=== PATIENT | female | born 1945 | race Caucasian/White ===

== ENCOUNTER 2017-01-04 08:33 | Inpatient (IN) ==
[2017-01-04] MEDS ORDERED: SODIUM CHLORIDE 0.9% 500 ML IV STA (09:04)
--- NOTE | 2017-01-04 09:07 | EKG Report ---
Stationary ECG Study [facility] ER Test Date: 01/04/2017 8:53:47 AM Pat Name: MERLENE WOOD Department: Room: 225 Gender: F Cobbler Mckay: Axel Sim : 1945 Requested by: Cristofer Shepard Order Number: [id number] Reading MD: RADHA JUAN Intervals [place] Rate: 53 P: 80 AR: 143 QRS: 16 QRSD: 84 T: 67 QT: 420 QTc: 404 Interpretive Statements SINUS BRADYCARDIA Electronically Signed On 01-06-17 16:32:02 CDT by RADHA JUAN [email or web address]
[2017-01-04 09:28] LABS: Basophils % 0.5 % (0.0-0.8); Eosinophils % 0.3 % (0.00-10.9); Hemoglobin 13.9 GM/DL (12.0-16.0); Immature Granulocytes % 0.3 %; Immature Granulocytes Absolute 0.02 #; Lymphocytes # 1.6 10*3/uL (1.4-4.0); Lymphocytes % 20.9 % (21.3-54.2); Mean Corpuscular HGB Conc 33.1 GM/DL (32-36); Mean Corpuscular Hemoglobin 31 PG (27-34); Mean Corpuscular Volume 92.9 FL (87-102); Mean Platelet Volume 8.7 FL (9.6-12.0); Monocytes # 0.6 10*3/uL (0.11-0.8); Neutrophils # 5.4 10*3/uL (1.4-7.4); Platelet Count 272 T/CUMM (130-400); Red Blood Count 4.52 MC/CUMM (3.8-5.5); Red Cell Distribution Width 13.4 % (9.3-17.3); White Blood Count 7.8 T/CUMM (4-12)
--- NOTE | 2017-01-04 09:40 | XRay Report ---
XR chest 1V portable Indication: Syncope. Palpitations. Chest one view: Comparison 10/12/2016. Heart remains normal in size with continued thoracic aortic tortuosity. No new infiltrates are shown. Pleural spaces are clear. Impression: No acute cardiopulmonary disease. PROCEDURE INTERPRETED AT [facility] DEPARTMENT OF RADIOLOGY Final Report Signed by: Josafat Camarillo M.D.
[2017-01-04 09:42] LABS: Barbiturates Screen,Urine Negative (Negative); Benzodiazepines Screen,Urine Positive (Negative); Cannabinoid Screen,Urine Negative (Negative); Opiate Screen,Urine Negative (Negative); Phencyclidine Screen,Urine Negative (Negative)
[2017-01-04 09:59] LABS: Alanine Aminotransferase 21 U/L (13-56); Albumin 3.7 G/DL (3.4-5.0); Alkaline Phosphatase 73 U/L (45-117); Aspartate Amino Transferase 16 U/L (0-37); Blood Urea Nitrogen 11 MG/DL (7-18); Calcium 8.6 MG/DL (8.5-10.1); Glucose 103 MG/DL (74-106); Osmolality,Calculated 286.7 MOS/KG (273-304); Potassium 3.9 MMOL/L (3.5-5.1); Sodium 145 MMOL/L (136-145); Total Protein 6.3 G/DL (6.4-8.3); Troponin I Only < 0.015 NG/ML (0.00-0.045)
--- NOTE | 2017-01-04 10:38 | CT Report ---
CT head/brain wo con Indication: 71-year-old female, headaches and confusion. CT BRAIN WITHOUT CONTRAST DLP: 982 mGy*cm. One or more of the following dose reduction techniques was used: Automated exposure control, adjustment of the mA and/or kV according the patient size, or use of iterative reconstruction techniques. Comparison: 03/25/2011. Date of admission: 01/04/2017. Technique: Axial noncontrast CT images of the brain were obtained. Findings: No acute hemorrhage, mass or mass effect. Generalized atrophy with prominent CSF space overlying both convexities, stable. Old lacunar infarct right internal capsule, stable. Cortical johnson-white junction is maintained. No acute ischemic changes identified. No bone lesions. Sinuses are clear. Impression: No acute intracranial pathology. Generalized atrophy. Old lacunar infarct right basal ganglia. PROCEDURE INTERPRETED AT [facility] DEPARTMENT OF RADIOLOGY Final Report Signed by: Josafat Camarillo M.D.
--- NOTE | 2017-01-04 11:00 | Emergency Department Note ---
Marciano Funes Brooke, am scribing for, and in the presence of, Cristofer Shepard Jr., MD 09:07. Devyn Funes Marvin Jr., MD, personally performed the services described in this documentation, ascribed by Jenni Tariq in my presence, and it is both accurate and complete 918 . Arrival - Arrival Chief Complaint: Syncope Stated Complaint: passed out twice this morning and loosing weight ED Nursing Triage Note: Pt c/o Syncope x 2 this am with chest heaviness, CASTANEDA, weakness, and nervous feeling. Pt also reports weight loss from 146 to 111 lbs over the last 2 months. Mode of Arrival: Wheelchair Limitations: No Limitations Source: Patient, RN Notes Reviewed Time Seen by Provider: 01/04/17 08:58 - History of Present Illness HPI Narrative: Patient is a 71 year old female who presents to the ED following two syncopal episodes that happened this morning. She was standing on carpet when she fell into the floor. She denies any injury due to the falls. She says she had just got out of the bathtub and that she did feel dizzy before both syncopal episodes. She also complains of having "heart palpitations, headache and diarrhea but denies any fever, chills, nausea, or vomiting. She says her heart beat is "irregular" and "sometimes skips a beat." She says the diarrhea is chronic and has been going on for about a year. After eating, she says she "has to find a bathroom within 15-30 minutes." Patient says over the past two months she has lost a significant amount of weight. She says she did weight 146 pounds but was 111 pounds during triage today. She says she is still eating and drinking without any problems. Patient's Primary Care Provider is Dr. Sanchez and that he is aware of the problems she is having. She states that Dr. Sanchez told her to come to the ED today. Patient is a smoker. She has PMHx of HTN, diabetes, insomnia, and depression. Allergies/Adverse Reactions: Allergies Allergy/AdvReac Type Severity Reaction Status Date / Time No Known Allergies Allergy Unverified 10/12/16 08:52 Home Medications: Home Medications Medication Instructions Recorded Confirmed Type HydrOXYzine PAMOATE CAP [Vistaril 25 mg PO QID PRN #30 capsule 10/12/16 Rx Cap] ALPRAZolam [Alprazolam] 0.5 mg PO Q6H PRN 01/04/17 01/04/17 History Sertraline [Zoloft] 50 mg PO BEDTIME 01/04/17 01/04/17 History Review of System - Review of System 12 point system: reviewed and no additional remarkable complaints except as stated - Review of System Constitutional: Absent: chills, fever Respiratory: Absent: respiratory distress Cardiovascular: Present: palpitations ("skipping beats" and "irregular"), syncope (x2) Gastrointestinal: Present: diarrhea (chronic for past year). Absent: nausea, vomiting Skin: Absent: rash Neurological: Present: headache, other (dizziness prior to the syncopal episodes ) Medical,Surgical,& Family Hx - Medical History Cardio: History of: Hypertension Psychological: History of: Depression Endocrine: History of: Diabetes Mellitus (NIDDM) - Surgical History Abdominal Surgeries: Surgical HX of: Cholecystectomy Reproductive Surgeries: Surgical HX of;: Hysterectomy, Tubal Ligation - Social History Smoking Status: Current every day smoker Exam Physical Examination: General: Well-developed well-nourished, no apparent distress. Slightly anxious Head: Normocephalic, atraumatic. Eyes: PERRLA, EOMI. Nose: No obvious acute deformities or discharge. Mouth: No obvious acute injury. Neck: Full range of motion without obvious pain. No midline tender to palpation. Lymphatic: no significant lymphadenopathy noted. Lungs: Clear to auscultation bilaterally, normal and equal air movement bilaterally, no obvious rales or wheezing. Heart: regular rate and rhythm, no obvious mummers. Patient says she has felt like her heart was racing and irregular but not now. Abdomen: Soft nontender, nondistended, normal active bowel sounds. Skin: No obivous acute lesions noted Musculoskeletal: No gross deformities. Neurological: No focal findings, cranial nerves II through XII grossly normal. Moves all her limbs, strength good, Psychiatric: Slightly anxious : Deferred Vital Signs: Vital Signs Temperature 97.4 F L 01/04/17 09:00 Pulse Rate 60 01/04/17 09:00 Respiratory Rate 18 01/04/17 09:35 Blood Pressure 125/79 01/04/17 09:00 O2 Sat by Pulse Oximetry 100 01/04/17 08:50 Course Course Narrative: Differential diagnosis, cardiac arrhythmias, syncope, hypoglycemia, vasovagal, intracranial bleeds or swelling is very low probability due to the intermittent nature of this condition. - Reevaluation(s) Reevaluation #1: She tells the nurse that she has been very confused lately so we will broaden our diagnostic parameters to include a head CT. Time: 09:26 Reevaluation #2: Patient feeling fine. I also reviewed past medical records and see nothing in the computer database relevant to today's visit. Time: 10:59 Results - Labs CBC & BMP: 01/04/17 09:16 01/04/17 09:16 Lab Results: I have reviewed the patients labs Labs: Laboratory Tests 01/04/17 09:16 WBC 7.8 RBC 4.52 Hgb 13.9 Hct 42.0 MCV 92.9 MCH 31 MCHC 33.1 RDW 13.4 Plt Count 272 MPV 8.7 L Neut % (Auto) 70.0 Lymph % (Auto) 20.9 L [place] % (Auto) 8.0 Eos % (Auto) 0.3 Baso % (Auto) 0.5 Neut # (Auto) 5.4 Lymph # (Auto) 1.6 [place] # (Auto) 0.6 Eos # (Auto) 0.0 Baso # (Auto) 0.0 Immature Gran % 0.3 Nucleated RBC % 0.0 Immature Gran # 0.02 Nucleated RBCs # 0.00 Laboratory Tests 01/04/17 09:16 Urine Opiates Screen Negative Ur Barbiturates Screen Negative Ur Phencyclidine Scrn Negative U Amphetamine/Methamph Negative U Benzodiazepines Scrn Positive H U Cocaine Metab Screen Negative U Cannabinoids Screen Negative Laboratory Tests 01/04/17 09:16 Sodium 145 Potassium 3.9 Chloride 111 H Carbon Dioxide 28 Anion Gap 9.9 BUN 11 Creatinine 0.80 GFR Calculation 64 BUN/Creatinine Ratio 13.00 Glucose 103 Calculated Osmolality 286.7 Calcium 8.6 Total Bilirubin 0.60 AST 16 ALT 21 Alkaline Phosphatase 73 Troponin I < 0.015 Total Protein 6.3 L Albumin 3.7 Globulin 2.6 Albumin/Globulin Ratio 1.4 - EKG EKG results: interpreted by ERMD (Heart rate 53, normal sinus rhythm, regular, narrow complex QRS complexes without obvious acute changes. Interpretation is mild sinus bradycardia) - Diagnostic Findings Procedure: Chest x-ray: image reviewed by me, report reviewed by me (No obvious acute changes. Impression: No acute cardiopulmonary disease.), CT: report reviewed by me (CT head/brain wo con: No acute intracranial pathology. Generalized atrophy. Old lacunar infarct right basal ganglia.) Disposition Clinical Impression: Acute syncopal episodes, History of depression, Palpitations Case discussed with: patient Disposition: Still a Patient Condition: Stable Time of Disposition: 11:00
[2017-01-04] MEDS ORDERED: NICOTINE 21 MG/24 HR PATCH TRANSDERM PRN (11:49)
[2017-01-04] MEDS ORDERED: ONDANSETRON 4 MG/2 ML VIAL IV PRN (11:49)
[2017-01-04] MEDS ORDERED: diphenhydrAMINE CAP 25 MG CAPSULE PO PRN (11:49)
[2017-01-04] MEDS ORDERED: MORPHINE 2 MG/1 ML SYRINGE IV PRN (11:49)
[2017-01-04] MEDS ORDERED: DOCUSATE SODIUM 100 MG CAPSULE PO PRN (11:49)
[2017-01-04] MEDS ORDERED: ZALEPLON 5 MG CAPSULE PO PRN (11:49)
[2017-01-04] MEDS ORDERED: ALPRAZolam 0.5 MG TABLET PO PRN (11:52)
--- NOTE | 2017-01-04 12:11 | Hospitalist History & Physical ---
Assessment and Plan - Time spent with patient Time spent with patient: Greater than 30 minutes (1) History of anxiety Status: Acute Assessment and plan: Patient has a history of anxiety and depression. Will restart her medicines while she is here in the hospital. She is asymptomatic. Current Visit: Yes (2) Bradycardia Status: Acute Assessment and plan: Patient is bradycardic on EKG and on exam. Her troponins are negative. This could be the reason for her syncopal episodes this morning. Will consult cardiology for evaluation. Current Visit: Yes (3) Syncope Status: Acute Assessment and plan: Patient had syncopal episode 2 this morning. Will check thyroid studies, serial troponins and EKG in the morning. We will also get cardiology to evaluate since patient is also having bradycardia. Current Visit: Yes (4) History of depression Status: Acute Assessment and plan: Patient seems to be stable on her home medicines. We will restart these for her hospital stay. Current Visit: Yes (5) Palpitations Status: Acute Assessment and plan: Patient is having symptomatic palpitations especially at night. Patient feels like her heart is beating irregularly and out of her chest. She is bradycardic at this time and with her syncopal episode we will go ahead and consult cardiology for further evaluation. All of this is been discussed with Dr. Sawyer the admitting hospitalist. Further recommendations to follow. Current Visit: Yes History of Present Illness Chief complaint: Fainting 2 History of present illness: Ms. Agustin is a 71 year old female with history of anxiety and depression presenting to the ED with syncopal episode 2 this morning. Patient states she had just gotten out of the bathtub and was drying off when she blacked out. She fell on the carpet and did not get hurt. She states about 10 or 15 minutes later the same thing happened in the living room. Patient has been feeling weak for the last month, complaining of headaches at the base of her skull associated with blurred vision and diarrhea intermittently right after she eats. Patient states she has had loss of appetite but she is forcing herself to eat. And she has had a weight loss of approximately 30-35 pounds in the last 2 months. She also complains of palpitations and heart beating out of her chest and irregularly especially at night. This is been going on for about a month. Patient denies dizziness, dysphasia, chest pain, shortness of breath, abdominal pain, constipation, and lower extremity edema. She states this same thing happened to her minus the syncopal episodes about 4 or 5 years ago. She was evaluated by her family doctor at that time which was Dr. Hyde, and he did not find anything wrong with her. She states it just cleared up on her own after several months. Her workup in the ED show normal labs and normal vital signs. Her head CT shows an old basal ganglia infarct and no acute process identified. Her EKG is showing sinus bradycardia with a conduction delay. Her family doctor is Dr. Sanchez and she is never seen a sock drier or ladle patcher. After discussion with the ED physician Dr. Shepard and Dr. Sawyer the admitting hospitalist, it was decided patient would be admitted for syncopal workup. Home Medications Medication Instructions Recorded Confirmed Type HydrOXYzine PAMOATE CAP [Vistaril 25 mg PO QID PRN #30 capsule 10/12/16 Rx Cap] ALPRAZolam [Alprazolam] 0.5 mg PO Q6H PRN 01/04/17 01/04/17 History Sertraline [Zoloft] 50 mg PO BEDTIME 01/04/17 01/04/17 History Allergies Allergy/AdvReac Type Severity Reaction Status Date / Time No Known Allergies Allergy Unverified 10/12/16 08:52 Medical,Surgical,& Family Hx - Medical History Cardio: No history of: Hypertension Psychological: History of: Depression Endocrine: No history of: Diabetes Mellitus (NIDDM) - Surgical History Abdominal Surgeries: Surgical HX of: Cholecystectomy Reproductive Surgeries: Surgical HX of;: Hysterectomy, Tubal Ligation - Family History Family History: Reports;: Family Diabetes - Social History Smoking Status: Current every day smoker Marital Status: Functional capacity: independent ambulation Review of systems: A complete 10 system review of systems was obtained and pertinent negatives and positives are in HPI. Exam - Constitutional Exam: Constitutional System: No distress. No tremulousness. Head: Normocephalic, atraumatic. Ears, Nose and Throat System: No evidence of Otitis or Mastoiditis. No epistaxis or discharge Eyes System: Pupils equal, round, and reactive. Extraocular muscles intact. Neck: Supple, without adenopathy, No jugular venous distention. No thyromegaly, neck mass, or prior surgery apparent. Respiratory System: Chest clear to auscultation. Cardiovascular System: Heart with bradycardic rate and rhythm. No murmur. GI System: Abdomen soft, nontender. Normo active bowel sounds present. Musculoskeletal System: limbs with no pedal edema. Full distal pulses. Neurological System: No discernable sensory deficit. No aphasia Psychiatric System: Conversation is rational Results - Labs CBC & BMP: 01/04/17 09:16 01/04/17 09:16 Lab Results: I have reviewed the past 24 hour labs - EKG EKG shows: bradycardia - Diagnostic Findings Procedure: Chest x-ray: report reviewed by me (No acute process), CT: report reviewed by me (Head shows old basal ganglier infarct, no acute process)
[2017-01-04 12:18] LABS: Free T4 (Free Thyroxine) 1.1 NG/DL (0.76-1.46); Thyroid Stimulating Hormone 1.71 uIU/ml (0.358-3.74)
[2017-01-04] MEDS: ENOXAPARIN 40 MG/0.4 ML SYRINGE SUBCUT SCH (12:58)
[2017-01-04] MEDS: PANTOPRAZOLE 40 MG TABLET PO SCH (12:59)
[2017-01-04] MEDS: SODIUM CHLORIDE 0.9% 1,000 ML IV SCH ×2 (13:07→21:23)
[2017-01-04 14:16] LABS: Folate 21.8 NG/ML (5.4-24.0)
[2017-01-04] MEDS: ACETAMINOPHEN 325 MG TABLET PO PRN ×2 (15:17→21:26)
--- NOTE | 2017-01-04 18:22 | Ultrasound Report ---
US carotid duplex BI Indication: Syncope. CAROTID ULTRASOUND Comparison: 08/21/2011. Findings: Grayscale, color Doppler and pulsed Doppler interrogation of the carotid and vertebral arteries performed. Severity of stenosis based on flow velocity measurements using NASCET criteria. Distal right ICA diameter: 3.9 mm mm Distal left ICA diameter: 4.7 mm Peak systolic flow velocities in centimeters per second are as follows: Right: CCA: 69 cm/s Proximal ICA: 55 Distal ICA: 77 ICA/CCA ratio: 1.1 Left: CCA: 74 cm/s Proximal ICA: 72 Distal ICA: 112 ICA/CCA ratio: 1.5 External carotid arteries: Both are patent with antegrade flow. Vertebral arteries: Both are patent with antegrade flow. Grayscale and color Doppler images: There are couple areas of calcified focal plaque deposition identified, with normal color Doppler flow present. Pulse Doppler waveform interrogation: No significant spectral broadening. Impression: No hemodynamically significant stenosis of either ICA origin. PROCEDURE INTERPRETED AT [facility] DEPARTMENT OF RADIOLOGY Final Report Signed by: Josafat Camarillo M.D.
[2017-01-04] MEDS ORDERED: SERTRALINE 50 MG TABLET PO SCH (21:00)
[2017-01-04 22:48] LABS: Apearance,Urine Slightly Hazy (Clear); Bilirubin,Urine Negative (Negative); Blood, Urine Moderate mg/dL (Negative); Glucose,Urine (UA) Negative (Negative); Hyaline Casts,Urine 1 /LPF (0-3); Ketones,Urine Negative (Negative); Mucus,Urine Occasional /LPF (Occasional); Nitrite,Urine Negative (Negative); Protein,Urine Negative; RBC,Urine 1 /HPF (0-4); Squamous Epithelial Cell,Urine Occasional /HPF (0-10); Urine Color Yellow (Yellow); Urine Specific Gravity 1.023 (1.001-1.035); Urine Urobilinogen < 2.0 EU/DL (0.2-1.0); WBC,Urine 3 /HPF (0-6)
[2017-01-05 05:07] LABS: Basophils # 0.1 10*3/uL (0.0-0.2); Basophils % 0.8 % (0.0-0.8); Eosinophils # 0.1 10*3/uL (0.0-0.87); Eosinophils % 1.8 % (0.00-10.9); Hematocrit 36.8 VOL% (35.7-47.0); Hemoglobin 12.2 GM/DL (12.0-16.0); Immature Granulocytes % 0.5 %; Immature Granulocytes Absolute 0.03 #; Lymphocytes # 2.4 10*3/uL (1.4-4.0); Mean Corpuscular HGB Conc 33.2 GM/DL (32-36); Mean Corpuscular Hemoglobin 31 PG (27-34); Mean Corpuscular Volume 92.5 FL (87-102); Mean Platelet Volume 9.5 FL (9.6-12.0); Monocytes # 0.6 10*3/uL (0.11-0.8); Monocytes % 9.7 % (1.7-12.7); NRBC # 0.02 10*3/uL; Neutrophils # 3.3 10*3/uL (1.4-7.4); Neutrophils % 50.2 % (38.7-73.9); Platelet Count 241 T/CUMM (130-400); Red Blood Count 3.98 MC/CUMM (3.8-5.5); Red Cell Distribution Width 13.4 % (9.3-17.3); White Blood Count 6.5 T/CUMM (4-12)
[2017-01-05 05:37] LABS: Calcium 8.3 MG/DL (8.5-10.1); Magnesium 2.2 MG/DL (1.8-2.4); Osmolality,Calculated 292.3 MOS/KG (273-304); Potassium 4.5 MMOL/L (3.5-5.1)
[2017-01-05] MEDS: SODIUM CHLORIDE 0.9% 1,000 ML IV SCH (05:57)
--- NOTE | 2017-01-05 08:38 | EKG Report ---
Stationary ECG Study 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
[2017-01-05] MEDS: PANTOPRAZOLE 40 MG TABLET PO SCH (09:06)
--- NOTE | 2017-01-05 09:44 | Hospitalist Progress Note ---
Assessment and Plan (1) Syncope Status: Acute Assessment and plan: No further episodes of syncope. Carotid dopplers on yesterday (-); CT of brain ( -). The cause of syncope may be of a cardiac origin; Cardiology consult requested. Will obtain echo today. Current Visit: Yes (2) Bradycardia Status: Acute Assessment and plan: Thyroid panels were negative; the origin of the bradycardia may truly be from a cardiac origin. May be a side effect of the use of Zoloft and Xanax together. Will obtain cardiology consult today Current Visit: Yes Hospitalist: Subjective Interval history: Patient seen and examined. No significant overnight issues. Awaiting cardiology consult. Exam - Constitutional Vitals: Period Temp Pulse Resp BP Sys/Hernandez Pulse Ox Last 24 Hr 97.1 F-99.1 F 49-68 14-20 97-126/53-79 98-100 General appearance: normal weight, no acute distress - Head Head exam: Present: normal inspection, normocephalic, atraumatic - Eye Eye exam: Present: EOMI. Absent: conjunctival injection, nystagmus, periorbital swelling, scleral icterus Pupils: Present: VITA, normal accommodation - ENT ENT exam: Present: normal exam - Neck Neck exam: Present: normal inspection. Absent: lymphadenopathy, meningismus, tenderness, thyromegaly - Respiratory Respiratory exam: Present: clear to auscultation bilaterally. Absent: rales, rhonchi, stridor, wheezes - Cardiovascular Cardiovascular exam: Present: regular rate and rhythm. Absent: carotid bruit, diastolic murmur, gallop, JVD, rubs, systolic murmur - GI/Abdominal GI/Abdominal exam: Present: normal bowel sounds, soft. Absent: tenderness - Extremities Exam Extremities exam: Present: normal inspection, full ROM. Absent: edema - Back Exam Back exam: Present: normal inspection - Neurological Exam Neurological exam: Present: alert, oriented X3, CN II-XII intact - Psychiatric Psychiatric exam: Present: normal affect, normal mood - Skin Skin exam: Present: normal color, warm, dry Results - Labs CBC & BMP: 01/05/17 04:26 01/05/17 04:26 Lab Results: I have reviewed the past 24 hour labs
--- NOTE | 2017-01-05 10:05 | ECHO Report ---
Ginger Agustin Exam Date: 01/05/2017 08:53 Referring Physician: Technologist: Ana Luisa Todd RDCS Age: 71 Ht (in): 62 Wt (lb): 120 Gender: F Exam Location: [facility] Echo Indications: Syncope and collapse, Weakness, Palpitations, Bradycardia, unspecified, Blurred vision, Headaches, Nicotine dependence, cigarettes, uncomplicated BP: 109 / 55 HR: 60 Rhythm: Sinus Technical Quality: IMPRESSIONS Normal left ventricular cavity size. Normal left ventricular wall thickness. Left ventricular ejection fraction is estimated at 60%. Normal systolic function. Grade 2 diastolic dysfunction. The right ventricle is mildly dilated, with normal systolic function. Moderate pulmonary hypertension. Mild biatrial enlargement. Mild mitral regurgitation. Mild aortic valve sclerosis, without stenosis or insufficiency. MEASUREMENTS (Male / Female) Normal Values 2D ECHO LV Diastolic Diameter PLAX 4.2 cm 4.2 - 5.9 / 3.9 - 5.3 cm LV Systolic Diameter PLAX 2.1 cm LV Fractional Shortening PLAX 49.4 % IVS Diastolic Thickness 0.8 cm 0.6 - 1.0 / 0.6 - 0.9 cm LVPW Diastolic Thickness 0.9 cm 0.6 - 1.0 / 0.6 - 0.9 cm RV Internal Dim ED PLAX 2.7 cm Aortic Root Diameter 2.9 cm LA Systolic Diameter LX 3.5 cm 3.0 - 4.0 / 2.7 - 3.8 cm DOPPLER TR Peak Velocity 335.0 cm/s TR Peak Gradient 44.9 mmHg FINDINGS Left Ventricle Normal left ventricular cavity size. Normal left ventricular wall thickness. Left ventricular ejection fraction is estimated at 60%. Normal systolic function. Grade 2 diastolic dysfunction. Right Ventricle The right ventricle is mildly dilated, with normal systolic function. Right Atrium The right atrium is mildly dilated. Left Atrium The left atrium is mildly dilated. Mitral Valve Structurally normal mitral valve, with mild regurgitation. Aortic Valve Mild aortic valve sclerosis, without stenosis or insufficiency. Tricuspid Valve Morphologically normal tricuspid valve. Moderate tricuspid valve regurgitation. Tricuspid regurgitation velocities suggest a PAP of 55 mmHg. Pulmonic Valve Morphologically normal pulmonic valve without significant stenosis. There is no pulmonic regurgitation. Pericardium Normal pericardium without effusion. Aorta Normal ascending aorta dimension. Dudley Yang (Electronically Signed) Final Date: 05 January 2017 10:04
--- NOTE | 2017-01-05 10:37 | Cardiology Consult Note ---
Assessment and Plan (1) Syncope Status: Acute Assessment and plan: 71-year-old female, with an episode of syncope, suggestive of orthostatic origin. Episodes of anxiety, intermittent chest discomfort, shortness of breath. No sustained palpitations. Mild sinus bradycardia, occasional atrial ectopy, no high-risk findings on telemetry. Significant weight loss, diarrhea over last months. Moderate pulmonary hypertension, with diastolic dysfunction. -Check d-dimer. If elevated, will need to rule out PE. Clinically this is low probability. -Recent significant weight loss concerning for malignancy. Although she had prior similar episode, she does not recall a recent workup. -She has diastolic dysfunction. Feeling better. Discontinue IV fluids, check orthostatic vitals. If she is not orthostatic, I would hold further IV fluids and just continue with p.o. hydration. -Keep on telemetry. If no etiology established, she will need an event recorder. Intermittent anxiety, chest discomfort, shortness of breath. This could be panic attacks, but will need to rule out intermittent symptomatic arrhythmia. Current Visit: Yes (2) Bradycardia Status: Acute Current Visit: Yes (3) History of anxiety Status: Acute Current Visit: Yes (4) History of depression Status: Acute Current Visit: Yes (5) Palpitations Status: Acute Current Visit: Yes History of Present Illness - Data of Consult Patient: new to practice Consult date: 01/05/17 - Consult Narrative Reason for consult: syncope History of present illness: Ms. Agustni is a 71 year old female, followed by Dr. Sanchez. She was admitted after an episode of syncope. She was taking a shower, when was trying to dry herself off, she felt they were going dark and she blacked out. No injuries. She lost approximately 30 pounds in the past months, gets significant diarrhea several minutes after she eats. She had similar episode several years ago, she remembers workup was unremarkable at that time and she does not remember a specific diagnosis. She denies any leg swelling. Occasionally, she is has episodes which she describes panic attacks, becomes very anxious and developed some chest discomfort, and shortness of breath, lasting for several minutes. She has depression and occasional migraine headaches. These are stable at this time. There is no history of angina, exertional dyspnea, palpitations. X-ray, carotid ultrasound was unremarkable. Labs do not suggest severe dehydration. Thyroid functions normal. Cardiac biomarkers negative. EKG sinus rhythm, with occasional atrial ectopy, no critical bradycardia or significant pauses so far. Echo showed normal systolic function, moderate pulmonary hypertension. Grade [address] showed some old lacunar lesions. No acute lesions. She was started on IV fluids yesterday. Currently, she is feeling fine. CC: Barrera Sawyer Jr., MD - Home Medications and Allergies Home Medications: Home Medications Medication Instructions Recorded Confirmed Type HydrOXYzine PAMOATE CAP [Vistaril 25 mg PO QID PRN #30 capsule 10/12/16 Rx Cap] ALPRAZolam [Alprazolam] 0.5 mg PO Q6H PRN 01/04/17 01/04/17 History Sertraline [Zoloft] 50 mg PO BEDTIME 01/04/17 01/04/17 History Allergies/Adverse Reactions: Allergies Allergy/AdvReac Type Severity Reaction Status Date / Time No Known Allergies Allergy Unverified 10/12/16 08:52 12 point system: reviewed and no additional remarkable complaints except as stated Medical,Surgical,& Family Hx - Medical History Cardio: No history of: Hypertension Psychological: History of: Depression Neurology: History of: Migraine No history of: Brain Aneurysm, Seizures Endocrine: No history of: Diabetes Mellitus (NIDDM) - Surgical History Neurologic Surgeries: Patient denies: Brain Aneurysm, Neurologic Surgery Abdominal Surgeries: Surgical HX of: Cholecystectomy Reproductive Surgeries: Surgical HX of;: Hysterectomy, Tubal Ligation - Family History Family History: Reports;: Family Diabetes - Social History Smoking Status: Current every day smoker Frequency of Alcohol Use: None Type of Drug Use: None Physical Examination Vital Signs Temp Pulse Resp BP Pulse Ox 97.4 F L 60 18 125/79 100 01/04/17 08:50 01/04/17 08:50 01/04/17 08:50 01/04/17 08:50 01/04/17 08:50 General: Present: Appears Well, No Apparent Distress HEENT: Present: Normocephaly, Mucus Membranes Moist Neck: Present: Supple Neck, Midline Trachea, No JVD/HJR Cardiac: Present: Regular Rate, Regular Rhythm. Absent: Gallop Lungs: Present: Normal Exam, No Wheeze, Rales, Rhonchi Neuro: Present: Grossly Intact Abdomen: Present: Soft, Active Bowel Sounds Skin: Present: Clear. Absent: Rash Extremities: Present: No Clubbing, No Cyanosis, No Edema Result/EKG - Labs CBC & BMP: 01/05/17 04:26 01/05/17 04:26 Lab Results: I have reviewed the past 24 hour labs Labs: Laboratory Results - last 24 hr 01/04/17 01/05/17 01/05/17 22:00 04:26 04:26 WBC 6.5 RBC 3.98 Hgb 12.2 Hct 36.8 MCV 92.5 MCH 31 MCHC 33.2 RDW 13.4 Plt Count 241 MPV 9.5 L Neut % (Auto) 50.2 Lymph % (Auto) 37.0 [place] % (Auto) 9.7 Eos % (Auto) 1.8 Baso % (Auto) 0.8 Neut # (Auto) 3.3 Lymph # (Auto) 2.4 [place] # (Auto) 0.6 Eos # (Auto) 0.1 Baso # (Auto) 0.1 Immature Gran % 0.5 Nucleated RBC % 0.3 Immature Gran # 0.03 Nucleated RBCs # 0.02 Sodium 148 H Potassium 4.5 Chloride 117 H Carbon Dioxide 25 Anion Gap 10.5 BUN 11 Creatinine 0.80 GFR Calculation 64 BUN/Creatinine Ratio 13.00 Glucose 94 Calculated Osmolality 292.3 Calcium 8.3 L Magnesium 2.2 Urine Color Yellow Urine Appearance Slightly hazy Urine pH 5.0 Ur Specific [place] 1.023 Urine Protein Negative Urine Glucose (UA) Negative Urine Ketones Negative Urine Blood Moderate Urine Nitrate Negative Urine Bilirubin Negative Urine Urobilinogen < 2.0 H Urine Leukocytes Small H Urine RBC 1 Urine WBC 3 Ur Squamous Epith Cells Occasional Hyaline Casts 1 Urine Mucus Occasional Ur Culture Indicated? Results to follow - EKG EKG results: interpreted by me
[2017-01-05] MEDS: buPROPion 75 MG TABLET PO SCH ×2 (11:47→20:36)
[2017-01-05] MEDS: ENOXAPARIN 40 MG/0.4 ML SYRINGE SUBCUT SCH (11:47)
[2017-01-05] MEDS: ACETAMINOPHEN 325 MG TABLET PO PRN (20:36)
[2017-01-06] MEDS: ACETAMINOPHEN 325 MG TABLET PO PRN ×2 (05:53→20:42)
[2017-01-06 06:00] LABS: Basophils # 0.1 10*3/uL (0.0-0.2); Basophils % 0.7 % (0.0-0.8); Eosinophils # 0.1 10*3/uL (0.0-0.87); Eosinophils % 1.5 % (0.00-10.9); Hematocrit 39.1 VOL% (35.7-47.0); Immature Granulocytes % 0.4 %; Immature Granulocytes Absolute 0.03 #; Lymphocytes # 2.7 10*3/uL (1.4-4.0); Lymphocytes % 36.8 % (21.3-54.2); Mean Corpuscular HGB Conc 33.2 GM/DL (32-36); Mean Corpuscular Hemoglobin 31 PG (27-34); Mean Corpuscular Volume 92.4 FL (87-102); Mean Platelet Volume 9.2 FL (9.6-12.0); Monocytes # 0.6 10*3/uL (0.11-0.8); Monocytes % 8.6 % (1.7-12.7); Neutrophils # 3.8 10*3/uL (1.4-7.4); Platelet Count 250 T/CUMM (130-400); Red Blood Count 4.23 MC/CUMM (3.8-5.5); Red Cell Distribution Width 13.4 % (9.3-17.3); White Blood Count 7.2 T/CUMM (4-12)
[2017-01-06 06:36] LABS: Albumin 3.3 G/DL (3.4-5.0); Bilirubin,Total 0.4 MG/DL (0.2-1.0); Calcium 8.6 MG/DL (8.5-10.1); Magnesium 2.3 MG/DL (1.8-2.4); Osmolality,Calculated 291.4 MOS/KG (273-304); Phosphorous 3.9 MG/DL (2.5-4.9); Potassium 4.6 MMOL/L (3.5-5.1); Total Protein 5.4 G/DL (6.4-8.3)
[2017-01-06] MEDS: guaiFENesin/DM ER 600-30 MG TABLET PO PRN (08:33)
[2017-01-06] MEDS: buPROPion 75 MG TABLET PO SCH ×2 (08:33→20:43)
[2017-01-06] MEDS: PANTOPRAZOLE 40 MG TABLET PO SCH (08:34)
--- NOTE | 2017-01-06 13:59 | Cardiology Progress Note ---
I, Michelle Lorenzana RN, am scribing for, and in the presence of, Brayden Frazier MD 13:58. Assessment and Plan - Time spent with patient Time spent with patient: Greater than 30 minutes (1) Syncope Status: Acute Assessment and plan: Workup thus far has been relatively benign. This may simply be orthostatic hypotension, and may be related to her ongoing weight loss. She denies further syncopal episodes since admission. EKG unrevealing for symptoms and she has been in a sinus rhythm with some bradycardia in the 50-60 range, occ PAC. No AVB or significant pauses. Echocardiogram with normal LV EF 60%, normal systolic dysfunction, grade II diastolic dysfunction, moderate pulm HTN. 12 lead EKG negative for ischemic change. From my standpoint she could be discharged home. I would like for her to have a 30 day event recorder as an outpatient and follow-up with cardiology after this is complete. Current Visit: Yes (2) Weight loss, unintentional Status: Acute Assessment and plan: The patient reports up to 30 pounds of unintentional weight loss recently. I think this is going to need a workup. This could be done as an outpatient with gastroenterology or other appropriate specialty. Current Visit: Yes (3) Bradycardia Status: Acute Assessment and plan: Mild asymptomatic sinus bradycardia at rest with heart rates of 50-60. No AV block or significant pauses per tele review. TSH normal. Current Visit: Yes (4) Palpitations Status: Acute Current Visit: Yes (5) History of anxiety Status: Chronic Assessment and plan: Defer management of this to hospital medicine. Current Visit: Yes (6) History of depression Status: Chronic Assessment and plan: Defer management of this to hospital medicine. 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 BANKS 71 year old white female with PMHx of anxiety, depression, and no significant prior cardiac history. Admitted 01/04/17 after syncopal episode x 2 prior to presentation. Also c/o frequent diarrhea after meals, unintentional 30 lb weight loss over past 2-3 months, and palpations occurring mainly at night and started approximately 1 month ago. She mild sinus bradycardia with pulse rate 50 -[address] head and carotid doppler US negative for acute finding. Echocardiogram 01/04/17 with LV EF 60%, normal systolic dysfunction, grade II diastolic dysfunction, moderate TR with PA pressure 55 mmHg. Orthostatic VS have revealed some mild orthostasis. Labs reviewed and overall unremarkable. TSH normal at 1.7 on admit. She is awake and alert this morning. No obvious distress is noted. No CP, SOB. She tells me that she had a panic attack and a headache this morning but that this has resolved with medication. Current Medications Acetaminophen (Tylenol Tab) 325 mg PO Q4H PRN PRN Reason: fever, headache/body aches Last Admin: 01/06/17 05:53 Dose: 325 mg Hydrocodone Bitart/Acetaminophen ([place] 5-325) 1 tablet PO Q4H PRN PRN Reason: Pain Mild (1-3) Last Admin: 01/06/17 08:34 Dose: 1 tablet Alprazolam (Xanax) 0.5 mg PO Q6H PRN PRN Reason: Anxiety Last Admin: 01/06/17 08:40 Dose: 0.5 mg Bupropion HCl (Wellbutrin) 75 mg PO BID [facility] Last Admin: 01/06/17 08:33 Dose: 75 mg Diphenhydramine HCl (Benadryl Cap) 25 mg PO Q6H PRN PRN Reason: Itching Docusate Sodium (Colace Cap) 100 mg PO BID PRN PRN Reason: Constipation Enoxaparin Sodium (Lovenox) 40 mg SUBCUT Q24H [facility] Last Admin: 01/05/17 11:47 Dose: 40 mg Guaifenesin/Dextromethorphan (Mucinex Dm) 1 tablet PO BID PRN PRN Reason: Congestion Last Admin: 01/06/17 08:33 Dose: 1 tablet Morphine Sulfate () 2 mg IV Q4H PRN PRN Reason: Pain Severe (8-10) Nicotine (Nicoderm Cq 21) 1 patch TRANSDERM DAILY PRN PRN Reason: Nicotine Cravings Ondansetron HCl (Zofran Inj) 4 mg IV Q4H PRN PRN Reason: Nausea Pantoprazole Sodium (Protonix Tab) 40 mg PO DAILY [facility] Last Admin: 01/06/17 08:34 Dose: 40 mg Zaleplon (Sonata) 5 mg PO BEDTIME PRN PRN Reason: Insomnia Exam (Progress Note) - Constitutional Vitals: Period Temp Pulse Resp BP Sys/Hernandez Pulse Ox Last 24 Hr 97.2 F-98.3 F 54-76 18-20 112-149/59-76 95-100 Exam: General: Present: Appears Well, No Apparent Distress HEENT: Present: Normocephaly, Mucus Membranes Moist Neck: Present: Supple Neck, Midline Trachea, No JVD/HJR Cardiac: Present: Regular Rate, Regular Rhythm. Absent: Gallop Lungs: Present: Normal Exam, No Wheeze, Rales, Rhonchi Neuro: Present: Grossly Intact, no resting tremor Abdomen: Present: Soft, Active Bowel Sounds. Absent: firm, tender Skin: Present: Clear, warm, dry. Absent: Rash, suspicious lesion Extremities: Present: No Clubbing, No Cyanosis, No Edema Result/EKG - Labs CBC & BMP: 01/06/17 05:09 01/06/17 05:09 Lab Results: I have reviewed the past 24 hour labs Labs: Laboratory Results - last 24 hr 01/05/17 01/05/17 01/06/17 10:48 18:33 05:09 WBC 7.2 RBC 4.23 Hgb 13.0 Hct 39.1 MCV 92.4 MCH 31 MCHC 33.2 RDW 13.4 Plt Count 250 MPV 9.2 L Neut % (Auto) 52.0 Lymph % (Auto) 36.8 [place] % (Auto) 8.6 Eos % (Auto) 1.5 Baso % (Auto) 0.7 Neut # (Auto) 3.8 Lymph # (Auto) 2.7 [place] # (Auto) 0.6 Eos # (Auto) 0.1 Baso # (Auto) 0.1 Immature Gran % 0.4 Nucleated RBC % 0.0 Immature Gran # 0.03 Nucleated RBCs # 0.00 D-Dimer, Quantitative <= 0.5 Sodium Potassium Chloride Carbon Dioxide Anion Gap BUN Creatinine GFR Calculation BUN/Creatinine Ratio Glucose POC Glucose 130 H Calculated Osmolality Calcium Phosphorus Magnesium Total Bilirubin AST ALT Alkaline Phosphatase Total Protein Albumin Globulin Albumin/Globulin Ratio 01/06/17 05:09 WBC RBC Hgb Hct MCV MCH MCHC RDW Plt Count MPV Neut % (Auto) Lymph % (Auto) [place] % (Auto) Eos % (Auto) Baso % (Auto) Neut # (Auto) Lymph # (Auto) [place] # (Auto) Eos # (Auto) Baso # (Auto) Immature Gran % Nucleated RBC % Immature Gran # Nucleated RBCs # D-Dimer, Quantitative Sodium 147 H Potassium 4.6 Chloride 111 H Carbon Dioxide 30 Anion Gap 10.6 BUN 12 Creatinine 0.90 GFR Calculation 56 BUN/Creatinine Ratio 13.00 Glucose 102 POC Glucose Calculated Osmolality 291.4 Calcium 8.6 Phosphorus 3.9 Magnesium 2.3 Total Bilirubin 0.40 AST 11 ALT 19 Alkaline Phosphatase 62 Total Protein 5.4 L Albumin 3.3 L Globulin 2.1 L Albumin/Globulin Ratio 1.5 - EKG EKG results: interpreted by me EKG shows: sinus rhythm (pulse rate 60s, [facility] PAC) IKarin Michael, MD, personally performed the services described in this documentation, ascribed by Michelle Lorenzana RN in my presence, and it is both accurate and complete 359 .
--- NOTE | 2017-01-06 14:44 | Hospitalist Progress Note ---
Assessment and Plan (1) History of depression Status: Chronic Current Visit: Yes (2) Palpitations Status: Acute Current Visit: Yes (3) History of anxiety Status: Chronic Current Visit: Yes (4) Syncope Status: Acute Current Visit: Yes (5) Weight loss, unintentional Status: Acute Current Visit: Yes Hospitalist: Subjective Interval history: No acute events overnight. Denies any more syncopal episodes. Cardiology following. Plan for event monitor outpatient. Patient also has significant weight loss. Will check prealbumin, tsh. Probable discharge soon with remainder of work-up outpatient. Exam - Constitutional Vitals: Period Temp Pulse Resp BP Sys/Hernandez Pulse Ox Last 24 Hr 97.3 F-99.3 F 54-76 18-20 112-149/59-76 97-100 General appearance: under weight - Head Head exam: Present: normocephalic, atraumatic - Eye Eye exam: Present: EOMI Pupils: Present: VITA - ENT ENT exam: Present: normal exam - Neck Neck exam: Present: normal inspection. Absent: tenderness - Respiratory Respiratory exam: Present: clear to auscultation bilaterally. Absent: rhonchi - Cardiovascular Cardiovascular exam: Present: regular rate and rhythm - GI/Abdominal GI/Abdominal exam: Present: normal bowel sounds, soft. Absent: tenderness, rebound - Extremities Exam Extremities exam: Present: normal inspection - Back Exam Back exam: Present: normal inspection - Neurological Exam Neurological exam: Present: alert, oriented X3 - Psychiatric Psychiatric exam: Present: normal affect, normal mood - Skin Skin exam: Present: warm, intact Results - Labs CBC & BMP: 01/06/17 05:09 01/06/17 05:09
[2017-01-06 15:08] LABS: Free T4 (Free Thyroxine) 0.93 NG/DL (0.76-1.46); Prealbumin 21.3 MG/DL (20-40); Thyroid Stimulating Hormone 3.31 uIU/ml (0.358-3.74)
[2017-01-06] MEDS: ENOXAPARIN 40 MG/0.4 ML SYRINGE SUBCUT SCH (20:42)
[2017-01-07 00:51] LABS: HIV Antigen/Antibody Result Nonreactive (Nonreactive)
[2017-01-07] MEDS: PANTOPRAZOLE 40 MG TABLET PO SCH (08:08)
[2017-01-07] MEDS: guaiFENesin/DM ER 600-30 MG TABLET PO PRN (08:08)
[2017-01-07] MEDS: buPROPion 75 MG TABLET PO SCH (08:08)
--- NOTE | 2017-01-07 09:33 | Cardiology Progress Note ---
Shantel, Michelle Lorenzana RN, am scribing for, and in the presence of, Brayden Frazier MD 09:32. Assessment and Plan - Time spent with patient Time spent with patient: Greater than 30 minutes (1) Syncope Status: Acute Assessment and plan: Workup for causes of syncope has been unrevealing. She has not experienced further syncope since her admission. EKG unrevealing for symptoms and she has been in a sinus rhythm with some bradycardia in the 50s, occ PAC. No AVB or significant pauses. Echocardiogram with normal LV EF 60%, normal systolic dysfunction, grade II diastolic dysfunction, moderate pulm HTN. 12 lead EKG negative for ischemic change. From cardiac standpoint, she is okay for discharge home. I have discussed with her getting a 30 day event monitor as an outpatient and following up with cardiology after it is complete. She voices understanding. This will be set up prior to her discharge. Current Visit: Yes (2) Bradycardia Status: Acute Assessment and plan: Mild, asymptomatic Sinus bradycardia at rest with pulse rate 50-60. Bradycardia is asymptomatic. There is no AV block or significant pauses per telemetry reviewed. Her TSH was normal Current Visit: Yes (3) Weight loss, unintentional Status: Acute Assessment and plan: She reports a 30 pound unintentional weight loss recently. This should be worked up, and he can be done as an outpatient with gastroenterology or another appropriate specialty. Current Visit: Yes (4) Palpitations Status: Acute Current Visit: Yes (5) History of anxiety Status: Chronic Assessment and plan: The patient has significant anxiety and one of her medications could be precipitating this. I'm going to adjust this medication and we will see how she does with this on follow-up. 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 BANKS Ms. Agusitn is awake and alert this morning, and in no obvious distress. She is sitting on the side of the bed drinking a cup of coffee. Denies further syncopal episodes or presyncope S/S. No CP or dyspnea. The patient's chief complaint today is of anxiety. She is apparently getting custody of her 3 granddaughters which increases her anxiety. She had a panic attack yesterday. This concerned her greatly. Looking over her medications, she is on Wellbutrin which can precipitate some anxiety. I think she would be much better off on a different antidepressant such as Lexapro. Per telemetry monitoring, pulse rate remains mid 50s to lower 60s, and is regular. There is an occasional PAC but no overt ectopy or arrhythmia. Labs reviewed. Sodium is 147, potassium 4.6 mag is 2.3 creatinine 0.9 with GFR of 56. Albumin level is low at 3.3. She does have some orthostasis, but systolic BP ranging 98-115 mmHg. Current Medications Acetaminophen (Tylenol Tab) 325 mg PO Q4H PRN PRN Reason: fever, headache/body aches Last Admin: 01/06/17 20:42 Dose: 325 mg Hydrocodone Bitart/Acetaminophen ([place] 5-325) 1 tablet PO Q4H PRN PRN Reason: Pain Mild (1-3) Last Admin: 01/07/17 03:40 Dose: 1 tablet Alprazolam (Xanax) 0.5 mg PO Q6H PRN PRN Reason: Anxiety Last Admin: 01/06/17 08:40 Dose: 0.5 mg Bupropion HCl (Wellbutrin) 75 mg PO BID [facility] Last Admin: 01/06/17 20:43 Dose: 75 mg Diphenhydramine HCl (Benadryl Cap) 25 mg PO Q6H PRN PRN Reason: Itching Docusate Sodium (Colace Cap) 100 mg PO BID PRN PRN Reason: Constipation Enoxaparin Sodium (Lovenox) 40 mg SUBCUT Q24H [facility] Last Admin: 01/06/17 20:42 Dose: 40 mg Guaifenesin/Dextromethorphan (Mucinex Dm) 1 tablet PO BID PRN PRN Reason: Congestion Last Admin: 01/06/17 08:33 Dose: 1 tablet Morphine Sulfate () 2 mg IV Q4H PRN PRN Reason: Pain Severe (8-10) Nicotine (Nicoderm Cq 21) 1 patch TRANSDERM DAILY PRN PRN Reason: Nicotine Cravings Ondansetron HCl (Zofran Inj) 4 mg IV Q4H PRN PRN Reason: Nausea Pantoprazole Sodium (Protonix Tab) 40 mg PO DAILY [facility] Last Admin: 01/06/17 08:34 Dose: 40 mg Zaleplon (Sonata) 5 mg PO BEDTIME PRN PRN Reason: Insomnia Exam (Progress Note) - Constitutional Vitals: Period Temp Pulse Resp BP Sys/Hernandez Pulse Ox Last 24 Hr 98 F-99.3 F 53-76 16-22 98-149/52-76 96-100 Exam: General: Present: Appears Well, No Apparent Distress HEENT: Present: Normocephaly, Mucus Membranes Moist Neck: Present: Supple Neck, Midline Trachea, No JVD/HJR Cardiac: Present: Regular Rate, Regular Rhythm. Absent: Gallop Lungs: Present: Normal Exam, No Wheeze, Rales, Rhonchi Neuro: Present: Grossly Intact, no resting tremor Abdomen: Present: Soft, Active Bowel Sounds. Absent: firm, tender Skin: Present: Clear, warm, dry. Absent: Rash, suspicious lesion Extremities: Present: No Clubbing, No Cyanosis, No Edema Result/EKG - Labs CBC & BMP: 01/06/17 05:09 01/06/17 05:09 Lab Results: I have reviewed the past 24 hour labs Labs: Laboratory Results - last 24 hr 01/06/17 01/06/17 05:06 05:06 Prealbumin 21.3 Free T4 0.93 TSH 3rd Generation 3.310 HIV 1&2 Antigen & Ab Nonreactive - EKG EKG results: interpreted by me, no acute changes EKG shows: bradycardia (Sinus bradycardia, occasional PAC) Specialty Discharge - Follow Up or Referrals Follow up with: Dudley Yang MD [Physician] - 02/07/17 10:00 am (WILL NEED 30 DAY EVENT MONITIOR AT [place] ([facility]) THEN FOLLOW UP WITH DR. BOGGS 30 DAYS AFTER MONITOR) I, Brayden Frazier MD, personally performed the services described in this documentation, ascribed by Michelle Lorenzana RN in my presence, and it is both accurate and complete 932 .
[2017-01-07] MEDS ORDERED: ESCITALOPRAM 10 MG TABLET PO SCH (10:00)
[2017-01-07 11:21] VITALS: BP 131/76
--- NOTE | 2017-01-07 11:38 | Discharge Summary ---
Hospital Course - Hospital Course Hospital Course: Ms. Agustin is a 71 year old female with history of anxiety and depression presented to the ED with syncopal episode 2 this morning. Patient stated she had just gotten out of the bathtub and was drying off when she blacked out. She fell on the carpet and did not get hurt. She states about 10 or 15 minutes later the same thing happened in the living room. Patient has been feeling weak for the last month, complained of headaches at the base of her skull associated with blurred vision and diarrhea intermittently right after she eats. Patient states she has had loss of appetite but she is forcing herself to eat. And she has had a weight loss of approximately 30-35 pounds in the last 2 months. She also complained of palpitations and heart beating out of her chest and irregularly especially at night. This is been going on for about a month. She stated this same thing happened to her minus the syncopal episodes about 4 or 5 years ago. She was evaluated by her family doctor at that time which was Dr. Hyde, and he did not find anything wrong with her. She stated it just cleared up on its own after several months. Her workup in the ED show normal labs and normal vital signs. 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 Her EKG was sinus bradycardia with a conduction delay. Her family doctor is Dr. Sanchez and she is never seen a gray mixing operator or lacing operator. Patient was admitted for syncopal work-up. Cardiology was consulted. Telemetry during admission with some sinus bradycardia (50s-60s) with an occasional PVC. The plan is for an event monitor outpatient. Patient also with unintentional weight loss, HIV, B12, folate and tsh all within normal limits. Patient will continue this work-up with her primary care physician. Patient has now reached maximum benefit of inpatient stay and will be discharged home. - Time spent with patient Time with patient DS: Less than 30 minutes Diagnosis - Discharge Diagnosis (1) History of depression Status: Chronic (2) Palpitations Status: Chronic (3) History of anxiety Status: Chronic (4) Syncope Status: Resolved (5) Weight loss, unintentional Status: Chronic Specialty Discharge - Follow Up or Referrals Follow up with: Dudley Yang MD [Physician] - 02/07/17 10:00 am (WILL NEED 30 DAY EVENT MONITIOR AT DC ([facility]) THEN FOLLOW UP WITH DR. BOGGS 30 DAYS AFTER MONITOR) Discharge Plan - Discharge Data Condition at Discharge: Stable Discharge Diet: advance to your usual diet Activity: resume usual activities as tolerated Hygiene: no restrictions Weight Bearing at Discharge: weight bear as tolerated Contact your physician if you experience:: fever over 101, Shortness of breath - Discharge Medications New Escitalopram [Lexapro] 10 mg PO DAILY #30 tablet Continue ALPRAZolam [Alprazolam] 0.5 mg PO Q6H PRN PRN Reason: Anxiety HydrOXYzine PAMOATE CAP [Vistaril Cap] 25 mg PO QID PRN #30 capsule PRN Reason: Anxiety Discontinued Sertraline [Zoloft] 50 mg PO BEDTIME - Follow Up or Referral Follow Up: Dudley Yang MD [Physician] - 02/07/17 10:00 am (WILL NEED 30 DAY EVENT MONITIOR AT DC ([facility]) THEN FOLLOW UP WITH DR. BOGGS 30 DAYS AFTER MONITOR) - Forms/Instructions Exam - Constitutional Vitals: Period Temp Pulse Resp BP Sys/Hernandez Pulse Ox Last 24 Hr 98.0 F-99.3 F 53-74 16-22 98-131/52-78 96-100 General appearance: normal weight - Head Head exam: Present: normocephalic, atraumatic - Eye Eye exam: Present: EOMI Pupils: Present: VITA - ENT ENT exam: Present: normal exam - Neck Neck exam: Present: normal inspection. Absent: tenderness - Respiratory Respiratory exam: Present: clear to auscultation bilaterally. Absent: rhonchi, wheezes - Cardiovascular Cardiovascular exam: Present: regular rate and rhythm - GI/Abdominal GI/Abdominal exam: Present: normal bowel sounds, soft. Absent: tenderness, rebound - Extremities Exam Extremities exam: Present: normal inspection - Back Exam Back exam: Present: normal inspection - Neurological Exam Neurological exam: Present: alert, oriented X3 - Psychiatric Psychiatric exam: Present: normal affect, normal mood - Skin Skin exam: Present: warm, intact Discharge Results Labs on day of discharge: Labs from last 24 hours 01/06/17 01/06/17 05:06 05:06 Prealbumin 21.3 Free T4 0.93 TSH 3rd Generation 3.310 HIV 1&2 Antigen & Ab Nonreactive DS: Provider Date of admission: 01/04/17 11:12 Primary care physician: . No PCP Attending physician on admission: Barrera Sawyer Jr., MD Consults: 01/04/17 12:07 Consult to Pharmacy [CONS] Routine Reason for Pharmacy Consult: Adjust Meds Renal Funct 01/04/17 12:21 Consult to Physician [CONS] Routine Comment: palpitations,bradycardia,syncope Consulting Provider: Cardiology - [facility] When should Consulting Provider be notified: Now Person Notified: Dr. Yang Date Notified: 01/05/17 Time Notified: 07:39 Consult Notification Comment: spoke with dr yang 01/04/17 12:42 Consult to Dietitian [CONS] Routine Reason for Dietitian: Other 01/06/17 08:50 Consult to Case Mgmt/Social Srvs [CONS] Routine Reason for Case Mgmt/Social Srvs: Other Consult Comment: anxiety at home grandkids Discharging clinician: Myranda Koehler MD
--- NOTE | 2017-01-08 16:13 | Physician Query Form ---
CLICK EDIT DOCUMENT TO SELECT QUERY ANSWER --> OK --> SIGN Ayesha Avina RN Clinical [employer] W) [phone] (f) [phone] [email or web address]: Make your selection(s) from the choices in EACH section by typing an "x" and enter comments in the comment section. Please use your independent medical judgment in providing your response. This request does not imply that any particular answer is desired or expected. CLINICAL INDICATORS: (Providers should not edit this section) Based on documentation of "Acute syncopal episodes" "Acute bradycardia this could be the reason for the syncopal episodes" "Episode of syncope suggestive of orthostatic origin" Treated with NS bolus and infusion. Based on the above, could you clarify the appropriate diagnosis, if significant , that supports the above abnormalities and additional evaluation, monitoring, and/or treatment rendered: ( ) Acute syncopal episode due to bradycardia ( ) Acute syncopal episode due to orthostatic hypotension ( ) Acute syncopal episode due to other (please specify) ( ) Other, please specify: ( x) Clinically unable to determine COMMENTS: Use of terms such as suspected, likely, or probable (associated with a specific diagnosis that is being evaluated, monitored, or treated as if it exists) are acceptable and can be restated in the discharge summary if not ruled out. MTDD
== END 2017-01-07 12:54 | disposition home or self-care (01) | DRG 310 ==
LOC: N.ED 08:33 → SUATTDRO 11:12 → N.EDINP 11:12 → N.2E 11:50
PROVIDERS: ADMIT Internal Medicine Nephrology; ATTEND Internal Medicine